=== PATIENT | female | born 1960 | race Caucasian/White ===

== ENCOUNTER 2018-05-22 10:24 | Emergency (ER) | payer OTHER ==
[~2018-05-22] VITALS: Ht 165.1 cm; Wt 76.7 kg
[~2018-05-22 10:24] MED LIST: DILT30TA; METO50TA20
[2018-05-22 10:32] VITALS: BP 144/80
[2018-05-22] MEDS: KETOROLAC 60 MG/2 ML VIAL IM ONE (11:19)
[2018-05-22] MEDS: METOCLOPRAMIDE 10 MG/2 ML INJ VIAL IM ONE (11:19)
[2018-05-22 14:13] VITALS: BP 119/61
== END 2018-05-22 14:13 | disposition home or self-care (01) ==
LOC: MED 10:24
DX: G44.209 Tension-type headache, unspecified, not intractable (principal); I10 Essential (primary) hypertension; Z88.0 Allergy status to penicillin; Z79.899 Other long term (current) drug therapy
CPT/HCPCS: 70450; 81002; 96372; 99284; J1885; J2765

== ENCOUNTER 2022-08-05 07:52 | Day surgery (SDC) | payer OTHER ==
[~2022-08-05] VITALS: Ht 165.1 cm; Wt 95.7 kg
[2022-08-05] MEDS ORDERED: diphenhydrAMINE 50 MG/ML VIAL ONE (08:45)
[2022-08-05] MEDS ORDERED: fentaNYL citrate 0.05 MG/ML VIAL ONE (08:45)
[2022-08-05] MEDS ORDERED: MIDAZOLAM 5 MG/5 ML VIAL ONE (08:46)
[2022-08-05] MEDS ORDERED: MIDAZOLAM 5 MG/5 ML VIAL IV ONE (09:20)
[2022-08-05] MEDS ORDERED: fentaNYL citrate 0.05 MG/ML VIAL IVP ONE (09:20)
== END 2022-08-05 09:38 | disposition home or self-care (01) ==
LOC: MDS 07:52 → MMU 07:52 → MDS 09:38
PROVIDERS: ATTEND Internal Medicine Gastroenterology
DX: K21.9 Gastro-esophageal reflux disease without esophagitis (principal); K29.50 Unspecified chronic gastritis without bleeding; B96.81 Helicobacter pylori [H. pylori] as the cause of diseases classified elsewhere; I10 Essential (primary) hypertension; E78.5 Hyperlipidemia, unspecified; M19.90 Unspecified osteoarthritis, unspecified site; Z20.822 Contact with and (suspected) exposure to COVID-19; Z86.010 Personal history of colon polyps; Z88.0 Allergy status to penicillin; Z88.8 Allergy status to other drugs, medicaments and biological substances
CPT/HCPCS: 43239; 87426; J2250; J3010; J1200

== ENCOUNTER 2022-12-02 21:56 | Emergency (ER) | payer OTHER ==
[~2022-12-02] VITALS: Ht 165.1 cm; Wt 95.3 kg
[2022-12-02 22:05] VITALS: BP 150/87
--- NOTE | 2022-12-02 22:08 | NUR ---
TO LOBBY A/W BED AMBULATORY
[2022-12-02 22:55] LABS: APPEARANCE,URINE CLEAR (CLEAR); BILIRUBIN,URINE NEGATIVE (NEGATIVE); BLOOD, URINE TRACE-I (NEGATIVE); COLOR,URINE YELLOW (YELLOW); LEUKOCYTE ESTERASE ,URINE TRACE (NEGATIVE); NITRITE, URINE NEGATIVE (NEGATIVE); UGLUCOSE NEGATIVE (NEGATIVE)
[2022-12-02 23:06] LABS: RBC,URINE 0-5 /HPF (0-5)
--- NOTE | 2022-12-02 23:12 | NUR ---
Patient resting in bed, A/Ox4, chest rise and fall symmetrical, no s/s of distress, on monitor.
--- NOTE | 2022-12-02 23:23 | NUR ---
Dr. Kearns examining patient.
[2022-12-02] MEDS ORDERED: NACL 0.9% 1,000 ML IV ONE (23:35)
[2022-12-02 23:45] LABS: BASOPHILS # (AUTO) 0.1 K/uL (0.00-0.22); BASOPHILS % (AUTO) 0.5 % (0.0-2.0); EOSINOPHILS # (AUTO) 0.1 K/uL (0-0.4); EOSINOPHILS % (AUTO) 0.7 % (0.0-4.0); HEMATOCRIT 36.5 % (36-48); HEMOGLOBIN 12.3 g/dL (12.0-16.0); LYMPHOCYTES # (AUTO) 1.6 K/uL (2.5-16.5); LYMPHOCYTES % (AUTO) 15.6 % (20.5-51.1); MEAN CORPUSCULAR HEMOGLOBIN 27 pg (27-31); MEAN CORPUSCULAR HGB CONC 34 g/dL (33-37); MEAN CORPUSCULAR VOLUME 81.7 fL (80-94); MONOCYTES # (AUTO) 0.8 K/uL (0.8-1.0); MONOCYTES % (AUTO) 7.5 % (1.7-9.3); NEUTROPHILS % (AUTO) 75.7 % (42.2-75.2); PLATELET COUNT (AUTO) 198 K/uL (140-450); RED BLOOD CELL COUNT(AUTO) 4.47 MIL/uL (4.20-5.40); RED CELL DISTRIBUTION WIDTH 13.8 % (11.6-13.7); WHITE BLOOD COUNT (AUTO) 10.5 K/uL (4.8-10.8)
--- NOTE | 2022-12-03 00:02 | NUR ---
Consent form for transport to [place] signed.
[2022-12-03 00:05] LABS: ALBUMIN 3.8 g/dL (3.4-5.0); ANION GAP 14.6 (8-16); CARBON DIOXIDE 25.1 mmol/L (21-32); CREATININE 0.8 mg/dL (0.6-1.3); POTASSIUM 3.7 mmol/L (3.5-5.1); TOTAL BILIRUBIN 0.7 mg/dL (0.0-1.0)
--- NOTE | 2022-12-03 00:28 | NUR ---
[facility] TRANSPORT AT BEDSIDE
--- NOTE | 2022-12-03 00:36 | NUR ---
PT TAKEN BY [facility] TRANSPORT TO [facility] FOR IMAGING
[2022-12-03] MEDS ORDERED: KETOROLAC 30 MG/ML VIAL IVP ONE (01:05)
--- NOTE | 2022-12-03 01:30 | NUR ---
Patient resting in bed, A/Ox4, chest rise and fall symmetrical, no s/s of distress, on monitor.
--- NOTE | 2022-12-03 01:42 | NUR ---
PT RETURN FROM [facility]
[2022-12-03] MEDS ORDERED: MORPHINE SULFATE 4 MG/ML SYR IVP ONE (01:45)
[2022-12-03] MEDS ORDERED: KETOROLAC 30 MG/ML VIAL ONE (02:24)
--- NOTE | 2022-12-03 02:29 | NUR ---
Patient resting in bed, A/Ox4, chest rise and fall symmetrical, no s/s of distress, on monitor. Patient verbally refused Morphine 4mg IVP. Patient stated she "does not want opioids." Dr. Kearns verbally informed of patient's statement. Dr. Kearns verbalized understanding.
--- NOTE | 2022-12-03 03:45 | NUR ---
Patient resting in bed, A/Ox4, chest rise and fall symmetrical, no c/o pain or s/s of distress, on monitor.
[2022-12-03 03:55] VITALS: BP 127/84
[2022-12-03] MEDS ORDERED: ACETAMINOPHEN EXTRA STRENGTH 500 MG TAB PO ONE (03:55)
[2022-12-03] MEDS ORDERED: metroNIDAZOLE 250 MG TAB PO ONE (03:55)
[2022-12-03] MEDS ORDERED: BEN10 PO (03:56)
[2022-12-03] MEDS ORDERED: CIPR500T4 PO (03:56)
[2022-12-03] MEDS ORDERED: ACET-10509 PO (03:56)
[2022-12-03] MEDS ORDERED: METR-435 PO (03:56)
== END 2022-12-03 03:55 | disposition home or self-care (01) ==
LOC: MED 21:56
DX: K57.92 Diverticulitis of intestine, part unspecified, without perforation or abscess without bleeding (principal); I10 Essential (primary) hypertension; Z88.0 Allergy status to penicillin; Z79.899 Other long term (current) drug therapy; Z90.49 Acquired absence of other specified parts of digestive tract
CPT/HCPCS: 36415; 80053; 81001; 83690; 85025; 96361; 96374; 99283; J1885; J7030; J2270

== ENCOUNTER 2023-04-30 20:01 | Emergency (ER) | payer OTHER ==
[~2023-04-30] VITALS: Ht 165.1 cm; Wt 95.3 kg
[~2023-04-30 20:01] MED LIST changes: +ACET-10509 PO; +BEN10 PO; +CIPR500T4 PO; -DILT30TA; -METO50TA20; +METR-435 PO
[2023-04-30 20:24] VITALS: BP 189/75; PULSE 72; RESP 16; TEMP 97.4; O2SAT 98
[2023-04-30 22:39] VITALS: BP 132/54; PULSE 64; RESP 16; TEMP 98; O2SAT 98
== END 2023-04-30 22:37 | disposition home or self-care (01) ==
LOC: MED 20:01
DX: R00.2 Palpitations (principal); R42 Dizziness and giddiness; I10 Essential (primary) hypertension; Z90.49 Acquired absence of other specified parts of digestive tract; Z98.890 Other specified postprocedural states; Z79.899 Other long term (current) drug therapy; Z79.2 Long term (current) use of antibiotics; Z88.0 Allergy status to penicillin
CPT/HCPCS: 93005; 99281; 99283